=== PATIENT | female | born 1950 | race Caucasian/White ===

== ENCOUNTER 2021-06-01 08:59 | Inpatient (IN) ==
[~2021-06-01 08:59] MED LIST: NS 0.9% 1000 ml BAG 1,000 ML IV ONE
[2021-06-01 09:14] LABS: ABS Monocytes 0.2 10^3/ul (0-0.8); ABS Neutrophils 8.3 10^3/ul (1.5-7.7); Eosinophil % 0.1 %; Hematocrit 41 % (35-47); Hemoglobin 14.3 g/dL (12.0-16.0); Lymphocyte % 10.3 %; Mean Corpuscular HGB Conc 35 g/dL (31-36); Mean Corpuscular Hemoglobin 32 pg (27-31); Mean Corpuscular Volume 92 fL (80-97); Mean Platelet Volume 7.6 fL (7.4-10.4); Platelet Count 247 10^3/uL (150-450); Red Blood Count 4.51 10^6 /uL (3.70-4.87); Red Cell Distribution Width 13 % (10-15); White Blood Count 9.6 10^3/uL (3.5-10.8)
[2021-06-01] MEDS ORDERED: Iodixanol (CONTRAST) 320 MG/ML 100 ML SDV IV ONE (09:19)
[2021-06-01 09:28] LABS: Activated Partial Thrombo Time 26.9 seconds (26.0-38.0); INR 1.18 (0.86-1.15)
[2021-06-01] MEDS ORDERED: levETIRAcetam 1000MG IVPREMIX 1,000 MG/100 ML BAG IVPB ONE (09:29)
[2021-06-01 09:31] LABS: Albumin 4.3 g/dL (3.2-5.2); Albumin/Globulin Ratio 1.5 (1-3); Calcium 9.2 mg/dL (8.6-10.3); EGFR African American 97.9 (>60); EGFR Non-African American 80.9 (>60); Globulin 2.8 g/dL (2-4); HDL Cholesterol 49.6 mg/dL; Potassium 3.7 mmol/L (3.5-5.0); Total Bilirubin 0.8 mg/dL (0.2-1.0); Total Protein 7.1 g/dL (6.4-8.9)
[2021-06-01] MEDS ORDERED: niCARdipine 0.1MG/ML IVPREMIX 20 MG/200 ML BAG IV SCH (10:00)
[2021-06-01 10:33] LABS: Urine Appearance Clear; Urine Bilirubin Negative (Negative); Urine Blood Negative (Negative); Urine Color Yellow; Urine Glucose Negative (Negative); Urine Ketones 1+ (Negative); Urine Nitrite Negative (Negative); Urine Protein Negative (Negative); Urine Urobilinogen Negative (Negative)
[2021-06-01 10:41] LABS: Urine Bacteria Absent (Absent); Urine Red Blood Cell Absent (Absent); Urine Squamous Epithelial Cell Present (Absent); Urine White Blood Cell 1+(6-10/hpf) (Absent)
[2021-06-01] MEDS ORDERED: Lorazepam PYXIS KEY PRN ×2 (14:16→16:58)
[2021-06-01] MEDS ORDERED: Morphine 2 MG/ML SYRINGE IV PRN (14:16)
[2021-06-01] MEDS: LORazepam 2 mg VIAL 1 ml IV PUSH PRN ×2 (14:53→16:57)
[2021-06-01] MEDS: Atropine 1% (ORAL/SL) 15 ML BTL SL PRN ×2 (15:36→17:05)
[2021-06-01] MEDS ORDERED: LORazepam 2 mg VIAL 1 ml IV PUSH ONE (16:58)
[2021-06-01] MEDS: levETIRAcetam 500 MG IVPREMIX 500 MG/100 ML BAG IV SCH ×2 (16:59→21:21)
[2021-06-02 00:02] VITALS: BP 148/65
[2021-06-02] MEDS: levETIRAcetam 500 MG IVPREMIX 500 MG/100 ML BAG IV SCH ×2 (04:23→17:01)
[2021-06-02] MEDS: Ondansetron 4 mg VIAL 2 MG/ML 2 ml VIAL IV PRN (04:23)
[2021-06-02] MEDS: Morphine 2 MG/ML SYRINGE IV PRN (04:23)
[2021-06-02] MEDS ORDERED: Pantoprazole VIAL 40 MG VIAL IV SCH (09:00)
[2021-06-03] MEDS: Ondansetron 4 mg VIAL 2 MG/ML 2 ml VIAL IV PRN (00:48)
[2021-06-03] MEDS: Morphine 2 MG/ML SYRINGE IV PRN (00:48)
[2021-06-03] MEDS: levETIRAcetam 500 MG IVPREMIX 500 MG/100 ML BAG IV SCH (07:05)
[2021-06-03] MEDS ORDERED: Morphine ORAL CONCENTRATE 5 MG/0.25 ML ORAL.SYRIN SL PRN (07:40)
[2021-06-04] MEDS ORDERED: Scopolamine PATCH Remove NOTE PATCH OFF SCH (16:00)
== END 2021-06-03 15:43 | disposition hospice, inpatient (51) | DRG 65 ==
LOC: ED 08:59 → SUATTDRO 11:16 → ICU 11:16 → MED 06-02 15:58
PROVIDERS: ADMIT Internal Medicine; ATTEND Internal Medicine